=== PATIENT | female | born 2000 | race African-American/Black ===

== ENCOUNTER 2022-06-17 11:37 | Observation (INO) | END 2022-06-17 19:00 | disposition home or self-care (01) | LOC: 1NENULAB | PROVIDERS: ADMIT Obstetrics & Gynecology; ATTEND Obstetrics & Gynecology ==

== ENCOUNTER 2022-07-26 03:46 | Inpatient (IN) ==
[2022-07-26] MEDS ORDERED: Metoclopramide 10 MG/2 ML VIAL IVP PRN (05:21)
[2022-07-26] MEDS ORDERED: Naloxone 0.4 MG/ML INJ IVP PRN (05:21)
[2022-07-26] MEDS ORDERED: *HR* FentaNYL (PF) 100 MCG/2 ML VIAL IVP PRN (05:21)
[2022-07-26] MEDS ORDERED: Azithromycin 500 MG in 0.9 % Sodium Chloride 250 ML IVPB PRN (05:21)
[2022-07-26] MEDS ORDERED: Lidocaine 1% 20 ML MDV INFILT PRN (05:21)
[2022-07-26] MEDS ORDERED: Famotidine 20 MG/2 ML VIAL IVP PRN (05:21)
[2022-07-26] MEDS ORDERED: miSOPROStoL 25 MCG TABLET PO PRN (05:28)
[2022-07-26] MEDS ORDERED: EPHEDrine 50 MG/ML VIAL IVP PRN (05:50)
[2022-07-26] MEDS ORDERED: Epidural Premix (fent/bupiv) 110 ML EP SCH (06:00)
[2022-07-26 07:35] LABS: Basophils % 0.3 %; Eosinophils # 0.1 K/mcL (0.0-0.6); Eosinophils % 0.7 %; Hematocrit 33.6 % (35.3-44.9); Immature Granulocytes % 0.7 % (0-4); Lymphocytes # 1.9 K/mcL (0.6-4.6); Lymphocytes % 19.4 %; Mean Corpuscular HGB Conc 35.7 g/dL (31.6-35.5); Mean Corpuscular Hemoglobin 34.3 pg (28.0-33.3); Mean Platelet Volume 11.4 fL (9.4-12.4); Monocytes # 0.8 K/mcL (0.0-1.3); Monocytes % 8.4 %; Platelet Count 211 K/mcL (140-400); Red Cell Distribution Width 12.8 % (11.5-14.5); Segmented Neutrophils % 70.5 %
[2022-07-26 09:03] LABS: Amphetamine Screen,Urine Negative ng/mL (Cutoff=1000); Barbiturate Screen,Urine Negative ng/mL (Cutoff=200); Benzodiazepines Screen,Urine Negative ng/mL (Cutoff=200); Cannabinoid Screen,Urine Negative ng/mL (Cutoff = 50); Cocaine Screen,Urine Negative ng/mL (Cutoff= 300); Opiate Screen,Urine Negative ng/mL (Cutoff=300); Phencyclidine Screen,Urine Negative ng/mL (Cutoff=25)
[2022-07-26] MEDS: *HR* Nalbuphine 10 MG/ML AMPUL IV PRN ×2 (09:19→13:20)
[2022-07-26] MEDS: Ringers Solution, Lactated 1,000 ML IVC SCH ×2 (09:19→16:36)
[2022-07-26] MEDS: Ondansetron 4 MG/2 ML VIAL IVP PRN ×2 (09:24→19:17)
[2022-07-26] MEDS ORDERED: Oxytocin 30 UNIT/503 ML BAG IVC SCH (13:30)
[2022-07-26] MEDS ORDERED: Oxytocin 30 UNIT/503 ML BAG IVC ONE (13:35)
[2022-07-26] MEDS ORDERED: *HR* FentaNYL (PF) 100 MCG/2 ML VIAL ONE (21:57)
[2022-07-27] MEDS ORDERED: Lanolin 7 G OINT...G. TP PRN (02:44)
[2022-07-27] MEDS ORDERED: Ondansetron ODT 4 MG TAB.RAPDIS SL PRN (02:44)
[2022-07-27] MEDS ORDERED: Benzocaine/Menthol 56 GM AEROSOL SPRAY TP PRN (02:44)
[2022-07-27] MEDS ORDERED: Measles/Mumps/Rubella Vacc 0.5 ML VIAL SQ PRN (02:44)
[2022-07-27] MEDS ORDERED: Rho Immune Globulin 1,500 UNIT SYRINGE IM PRN (02:44)
[2022-07-27] MEDS ORDERED: Oxytocin 30 UNIT/503 ML BAG IVC SCH (02:44)
[2022-07-27] MEDS: Ibuprofen 600 MG TABLET PO SCH ×4 (03:23→19:50)
[2022-07-27] MEDS: Acetaminophen 325 MG TABLET PO SCH ×4 (03:24→19:50)
[2022-07-27 04:57] LABS: Basophils % 0.2 %; Eosinophils % 0.1 %; Hematocrit 33.8 % (35.3-44.9); Hemoglobin 11.9 g/dL (11.5-15.4); Immature Granulocytes % 0.4 % (0-4); Lymphocytes # 1.6 K/mcL (0.6-4.6); Lymphocytes % 9.9 %; Mean Corpuscular HGB Conc 35.2 g/dL (31.6-35.5); Mean Corpuscular Hemoglobin 33.4 pg (28.0-33.3); Mean Corpuscular Volume 94.9 fL (83.0-100.0); Mean Platelet Volume 11.3 fL (9.4-12.4); Monocytes # 1.3 K/mcL (0.0-1.3); Monocytes % 8.1 %; Neutrophils # 13.2 K/mcL (1.6-8.9); Platelet Count 197 K/mcL (140-400); Red Blood Count 3.56 M/mcL (3.82-4.97); Red Cell Distribution Width 12.4 % (11.5-14.5); Segmented Neutrophils % 81.3 %
[2022-07-27 04:59] LABS: White Blood Count 16.2 K/mcL (4.3-11.1)
[2022-07-27] MEDS: Acyclovir 200 MG CAPSULE PO SCH ×2 (08:58→20:14)
[2022-07-27] MEDS: Prenatal Vit/FA 1 EACH TABLET PO SCH (08:58)
[2022-07-27] MEDS ORDERED: NON-FORMULARY MEDICATION 1 EACH EACH (Pnv No.95/Ferrous Fum/Folic Ac [Prenatal Caplet] 1 E PO SCH (09:00)
[2022-07-27] MEDS: Amoxicillin 500 MG CAPSULE PO SCH ×2 (09:15→20:14)
[2022-07-28] MEDS: Ibuprofen 600 MG TABLET PO SCH ×2 (02:03→11:15)
[2022-07-28 07:53] VITALS: BP 120/72; PULSE 52; TEMP 97.9; O2SAT 98
[2022-07-28] MEDS: Acetaminophen 325 MG TABLET PO SCH ×2 (09:25→11:15)
[2022-07-28] MEDS: Prenatal Vit/FA 1 EACH TABLET PO SCH (11:14)
[2022-07-28] MEDS: Amoxicillin 500 MG CAPSULE PO SCH (11:15)
[2022-07-28] MEDS: Acyclovir 200 MG CAPSULE PO SCH (11:15)
== END 2022-07-28 11:37 | disposition home or self-care (01) | DRG 560 ==
LOC: 1NENULAB 03:46 → 1NENUOBS 07-27 02:24
PROVIDERS: ADMIT Student in an Organized Health Care Education/Training Program; ATTEND Student in an Organized Health Care Education/Training Program